=== PATIENT | female | born 1955 | race Caucasian/White ===

== ENCOUNTER 2020-07-08 17:40 | Inpatient (IN) | payer OTHER, MEDICARE ==
[~2020-07-08] VITALS: Ht 162.6 cm; Wt 75.0 kg
--- NOTE | 2020-07-08 18:39 | PHYS DOC ---
General Adult EDM: Chief Complaint: FEVER HPI: HPI: Patient is a 64 year oldhzk-haxs-xfk female past medical history diabetes presents with a chief complaint of fever diffuse muscle aches and nausea. Patient states symptoms been ongoing since Wednesday. Patient states Wednesday morning she had a temperature up to 105. Patient states since onset fevers been up and down when treated with Tylenol. Patient states she has diffuse muscle aches. Patient also complains of nausea. Patient has ileostomy in place and states whenever she is very dehydrated she has nausea. Patient states she feels she is dehydrated. Patient also states she has a mild cough but denies any sputum production she denies any chest pain shortness of breath or abdominal pain. 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 Patient states she is checked weekly for COVID. Patient states last cover test was on . Review of Systems: Review of Systems: Constitutional: Positive fever [] Eyes: Denies change in visual acuity. [] HENT: Denies nasal congestion or sore throat. [] Respiratory: Denies shortness of breath. [Positive cough] Cardiovascular: Denies chest pain or edema. [] GI: Denies abdominal pain,, vomiting, bloody stools or diarrhea. [Positive nausea] : Denies dysuria. [] Musculoskeletal: Denies back pain or joint pain. [Positive myalgias] Integument: Denies rash. [] Neurologic: Denies headache, focal weakness or sensory changes. [] Endocrine: Denies polyuria or polydipsia. [] Lymphatic: Denies swollen glands. [] Psychiatric: Denies depression or anxiety. [] Heart Score: Risk Factors: Risk Factors: DM, Current or recent (<one month) smoker, HTN, HLP, family history of CAD, obesity. Risk Scores: Score 0 - 3: 2.5% MACE over next 6 weeks - Discharge Home Score 4 - 6: 20.3% MACE over next 6 weeks - Admit for Clinical Observation Score 7 - 10: 72.7% MACE over next 6 weeks - Early Invasive Strategies Physical Exam: PE: Constitutional: Well developed, well nourished, no acute distress, non-toxic appearance. [] HENT: Normocephalic, atraumatic, nose normal. [] Eyes: EOMI, conjunctiva normal, no discharge. [] Neck: Normal range of motion, no stridor. [] Cardiovascular:Heart rate regular rhythm, no murmur [] Lungs & Thorax: Bilateral breath sounds clear to auscultation [] Abdomen: no tenderness, Skin: Warm, dry, no erythema, no rash. [] Back: Normal range of motion Extremities: ROM intact, Neurologic: Alert and oriented X 3, normal motor function, normal sensory function, no focal deficits noted. [] Psychologic: Affect normal, judgement normal, mood normal. [] EKG: EKG: [] Radiology/Procedures: Radiology/Procedures: [] Impression: The cardiomediastinal silhouette is within normal limits. There is consolidation in the lateral mid lung suspicious for pulmonary infiltrate. There are no significant pleural effusions. There is no pulmonary vascular congestion. No pneumothorax. No suspicious osseous abnormality. IMPRESSION: Consolidation in the lateral left midlung may represent pneumonia in the appropriate clinical setting. Recommend follow-up to resolution to exclude underlying neoplastic process. Course & Med Decision Making: Course & Med Decision Making Pertinent Labs and Imaging studies reviewed. (See chart for details) []Xray with concern for pneumonia Treatment included IV fluids tylenol, rocephin and zithromax. Patient had an episode of emesis ---- treated with Zofran. Patient admitted to the hospitalist for further evaluation and treatment. Barry Disclaimer: Barry Disclaimer: This electronic medical record was generated, in whole or in part, using a voice recognition dictation system. Departure Departure Impression: Primary Impression: Fever Additional Impressions: Viral syndrome Person under investigation for COVID-19 Pneumonia Admitting Physician: MARY Condition: STABLE Additional Instructions: You have been tested for or diagnosed with COVID-19. It is an infection caused by a new type of coronavirus. COVID-19 will cause cold-like or mild flu symptoms in most. It can cause more severe symptoms like problems breathing in some. There is no treatment for COVID-19. The body will clear the infection over time. Self-care will help to ease discomfort. Steps to Take: Self-Care Rest as needed. Healthy habits may help you feel better. Steps include: Choose healthy foods including fruits and vegetables. Drink water throughout the day. Get plenty of sleep each night. If you smoke, try to quit. It may ease breathing. Avoid alcohol. Keep Others Healthy The virus can spread to others. Droplets are released every time you sneeze or cough. The droplets can get into the mouth, nose, or eyes of people near you and lead to infection. To lower the chances of spreading COVID-19 to others: Stay at home until your doctor has said it is safe to leave. If you tested positive this will mean staying isolated until both of the following are true: At least 7 days have passed since the start of illness. You are free of fever for at least 72 hours without the use of medicine. During this time: - Avoid public areas, events, or transportation. Do not return to work or school until your doctor has said it is safe to do so. - Call ahead if you need to go to a medical center. Let them know you may have COVID-19. It will help them guide you where to go. They may also ask you to wear a facemask when you come to the office. - If you call for emergency medical services, let them know you may have COVID- 19. While at home: - Try to avoid close contact with others. Stay about 6 feet away. - If possible, spend most of your time in a separate room from others. - Use a face mask if you will be in close contact with others such as sharing a room or vehicle. - Have someone wipe down common surfaces in the home. Use household electromechanisms design drafter every day on areas like doorknobs, counters, or sinks. - Cough or sneeze into a tissue. Throw the tissue away right after use. If a tissue is not available, cough or sneeze into your elbow. - Wash your hands often. Wash them after sneezing or coughing. Use soap and w ater and wash for at least 20 seconds. Alcohol based hand lamp cleaner street light can be used if soap and water is not available. - Do not prepare food for others. Avoid sharing personal items like forks, spoons, or toothbrushes. - Avoid close contact with pets while you are sick. There is no evidence of the virus passing to pets. This is a safety step until more is known about this virus. Isolation can be frustrating. Social interaction can help. Keep in touch with friends and family through phone and tech options. You can still interact with others in your home, just keep a safe distance of about 6 feet. Follow-up: Your doctors office will check in with you to see if there are any changes in your health. You may be asked to keep track of symptoms to share with them. They will also let you know when you are clear to be in public again. Problems to Look Out For: Contact your doctor if your recovery is not going as you expect. Get emergency care if you have problems such as: - Trouble breathing - Nonstop chest pain or pressure - Changes in awareness, confusion, or problems waking - Lips or face have bluish color - Worsening of symptoms If you think you have an emergency, call for emergency medical services right away. As taken from [facility] Justicifation of Admission Dx: Justifications for Admission: Justification of Admission Dx: Yes Comminuty Aquired Pneumonia: Dehydration CATIE VILLELA I DO Jul 08, 2020 18:39
[2020-07-08] MEDS ORDERED: IV NORMAL SALINE 1000ML BAG 1,000 ML IV ONE (18:45)
[2020-07-08] MEDS ORDERED: ACETAMINOPHEN 325 MG TABLET. PO ONE (18:45)
[2020-07-08 19:05] LABS: BASO % 0 % (0-3); EOS % 0 % (0-3); HEMATOCRIT 40.8 % (36.0-47.0); HEMOGLOBIN 13.6 g/dL (12.0-15.5); LYMPH # 0.6 x10^3/uL (1.0-4.8); LYMPH % 5 % (24-48); MEAN CORPUSCULAR HEMOGLOBIN 29 pg (25-35); MEAN CORPUSCULAR HGB CONC 33 g/dL (31-37); MEAN CORPUSCULAR VOLUME 87 fL (79-100); MONO % 8 % (0-9); NEUT # 11.1 x10^3/uL (1.8-7.7); NEUT % 87 % (31-73); PLATELET COUNT 211 x10^3/uL (140-400); RED BLOOD COUNT 4.67 x10^6/uL (3.50-5.40); RED CELL DISTRIBUTION WIDTH 13.5 % (11.5-14.5); WHITE BLOOD COUNT 12.7 x10^3/uL (4.0-11.0)
[2020-07-08 19:17] LABS: CALCIUM 9.2 mg/dL (8.5-10.1); CREATININE 1.4 mg/dL (0.6-1.0); GFR 37.6; POTASSIUM 3.4 mmol/L (3.5-5.1)
[2020-07-08 19:23] LABS: ALBUMIN 2.9 g/dL (3.4-5.0); ALBUMIN/GLOBULIN RATIO 0.6 (1.0-1.7); TOTAL BILIRUBIN 0.6 mg/dL (0.2-1.0); TOTAL PROTEIN 7.4 g/dL (6.4-8.2)
[2020-07-08 19:29] LABS: % BANDS 4 % (0-9); % LYMPHS 5 % (24-48); % MONOS 5 % (0-10); % SEGS 86 % (35-66); PLT ESTIMATE ADEQUATE (ADEQUATE); TOXIC GRANULATION SLIGHT
--- NOTE | 2020-07-08 19:29 | RAD ---
CHEST AP ONLY 07/08/2020 6:32 PM INDICATION: Cough, fever COMPARISON: None available TECHNIQUE: Portable frontal view of the chest is provided. FINDINGS: The cardiomediastinal silhouette is within normal limits. There is consolidation in the lateral mid lung suspicious for pulmonary infiltrate. There are no significant pleural effusions. There is no pulmonary vascular congestion. No pneumothorax. No suspicious osseous abnormality. IMPRESSION: Consolidation in the lateral left midlung may represent pneumonia in the appropriate clinical setting. Recommend follow-up to resolution to exclude underlying neoplastic process. Electronically signed by: Kady Christianson MD (07/08/2020 7:26 PM) CARMELINA
[2020-07-08] MEDS ORDERED: ONDANSETRON PF 4 MG/2 ML VIAL. ONE (19:52)
[2020-07-08] MEDS ORDERED: ONDANSETRON PF 4 MG/2 ML VIAL. IVP ONE (20:00)
[2020-07-08] MEDS ORDERED: cefTRIAXone IV Push 1 GM VIAL. IVP ONE (20:15)
[2020-07-08] MEDS ORDERED: AZITHROMYCIN 250 MG TABLET. PO ONE (20:15)
[2020-07-08] MEDS ORDERED: MORPHINE SULFATE 2 MG/ML VIAL. IV PRN (20:45)
[2020-07-08] MEDS ORDERED: ONDANSETRON PF 4 MG/2 ML VIAL. IV PRN (20:45)
[2020-07-08] MEDS ORDERED: DEXTROSE 50% 25 GM / 50ML DISP.SYRIN. IV PRN ×2 (21:00→21:30)
[2020-07-08] MEDS ORDERED: MAGNESIUM OXIDE 400 MG TABLET PO PRN (21:00)
[2020-07-08] MEDS ORDERED: POTASSIUM CHLORIDE 10MEQ 100 ML IV PRN ×2 (21:00)
[2020-07-08] MEDS ORDERED: ONDANSETRON PF 4 MG/2 ML VIAL. IVP PRN (21:00)
[2020-07-08] MEDS ORDERED: POTASSIUM CHLORIDE 20 MEQ TABLET.ER. PO PRN (21:00)
[2020-07-08] MEDS: MAGNESIUM SULFATE 2GM 50 ML IV SCH (21:00)
[2020-07-08] MEDS ORDERED: SENNOSIDES 8.6 MG TABLET PO PRN (21:00)
[2020-07-08] MEDS ORDERED: DOCUSATE SODIUM 100 MG CAPSULE. PO PRN (21:00)
[2020-07-08] MEDS ORDERED: PIOG15TA42 PO (21:26)
[2020-07-08] MEDS ORDERED: GLYB5TAB3 PO (21:26)
[2020-07-08] MEDS ORDERED: SITA50TA PO (21:26)
[2020-07-08] MEDS: POTASSIUM CHLORIDE 10MEQ 100 ML IV SCH ×3 (22:00→23:00)
[2020-07-08] MEDS ORDERED: ACETAMINOPHEN 325 MG TABLET. PO PRN (23:00)
[2020-07-09] VITALS (7 sets, daily range): BP systolic 95–137; BP diastolic 35–61
[2020-07-09] MEDS: POTASSIUM CHLORIDE 10MEQ 100 ML IV SCH (00:01)
[2020-07-09 04:54] LABS: BASO % 0 % (0-3); EOS % 0 % (0-3); HEMOGLOBIN 12.3 g/dL (12.0-15.5); LYMPH # 0.6 x10^3/uL (1.0-4.8); LYMPH % 5 % (24-48); MEAN CORPUSCULAR HEMOGLOBIN 29 pg (25-35); MEAN CORPUSCULAR HGB CONC 33 g/dL (31-37); MEAN CORPUSCULAR VOLUME 88 fL (79-100); MONO # 0.8 x10^3/uL (0.0-1.1); MONO % 7 % (0-9); NEUT # 10.7 x10^3/uL (1.8-7.7); NEUT % 88 % (31-73); PLATELET COUNT 188 x10^3/uL (140-400); RED BLOOD COUNT 4.21 x10^6/uL (3.50-5.40); RED CELL DISTRIBUTION WIDTH 13.4 % (11.5-14.5); WHITE BLOOD COUNT 12.1 x10^3/uL (4.0-11.0)
[2020-07-09 05:11] LABS: CALCIUM 8.4 mg/dL (8.5-10.1); CREATININE 1.4 mg/dL (0.6-1.0); GFR 37.6; MAGNESIUM 1.9 mg/dL (1.8-2.4); PHOSPHORUS 3.5 mg/dL (2.6-4.7); POTASSIUM 3.3 mmol/L (3.5-5.1)
[2020-07-09] MEDS: IV NORMAL SALINE 1000ML BAG 1,000 ML IV SCH ×5 (05:59→20:55)
[2020-07-09 06:14] LABS: BILIRUBIN,URINE NEGATIVE (NEG); CLARITY,URINE CLEAR; COLOR,URINE YELLOW; NITRITE,URINE NEGATIVE (NEG); PH,URINE 5.5 (<5.0-8.0); PROTEIN,URINE 100 mg/dL (NEG-TRACE); UROBILINOGEN,URINE 0.2 mg/dL (0.2 mg/dL)
[2020-07-09 07:04] LABS: BACTERIA,URINE 0 /HPF (0-FEW); RBC,URINE OCC /HPF (0-2)
[2020-07-09 07:05] LABS: AMORPHOUS SEDIMENT,UR PRESENT /HPF; SQUAMOUS EPITHELIAL CELL,UR MOD /LPF
[2020-07-09] MEDS ORDERED: IPRATRPIUM/ALBUTEROL 0.5/2.5MG 3 ML NEBU. NEB SCH (08:00)
[2020-07-09] MEDS: INSULIN LISPRO 300 UNITS/3 ML VIAL. SQ SCH ×3 (08:00→17:00)
--- NOTE | 2020-07-09 08:36 | PDOC1 ---
History and Physical Date of Admission Date of Admission DATE: 07/09/20 TIME: 08:34 Identification/Chief Complaint Chief Complaint seen in er with fever 64 year oldbdg-eeqo-ldh female past medical history diabetes presents with a chief complaint of fever diffuse muscle aches and nausea. Patient states symptoms been ongoing since Wednesday. Patient states Wednesday morning she had a temperature up to 105. Patient states since onset fevers been up and down when treated with Tylenol. Patient states she has diffuse muscle aches. Patient also complains of nausea. Patient has ileostomy in place and states whenever she is very dehydrated she has nausea. Patient states she feels she is dehydrated. Patient also states she has a mild cough but denies any sputum production she denies any chest pain shortness of breath or abdominal pain. 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 Patient states she is checked weekly for COVID. Past Medical History Musculoskeletal: Osteoarthritis Endocrine: Diabetes Family History Family History: High Cholestrol Social History Smoke: No ALCOHOL: none Drugs: None Current Problem List Problem List Problems Medical Problems: (1) Fever Status: Acute (2) Person under investigation for COVID-19 Status: Acute (3) Pneumonia Status: Acute (4) Viral syndrome Status: Acute Current Medications Current Medications Current Medications Acetaminophen (Tylenol) 650 mg 1X ONCE PO Last administered on 07/08/20at 18:46; Start 07/08/20 at 18:45; Stop 07/08/20 at 18:50; Status DC Sodium Chloride 1,000 ml @ 1,000 mls/hr 1X ONCE IV Last administered on 07/08/20at 18:53; Start 07/08/20 at 18:45; Stop 07/08/20 at 19:44; Status DC Ceftriaxone Sodium (Rocephin) 1 gm 1X ONCE IVP Last administered on 07/08/20 19:52; Start 07/08/20 at 20:15; Stop 07/08/20 at 20:16; Status DC Azithromycin (Zithromax) 500 mg 1X ONCE PO Last administered on 07/08/20at 19:51; Start 07/08/20 at 20:15; Stop 07/08/20 at 20:16; Status DC Ondansetron HCl (Zofran) 4 mg 1X ONCE IVP Last administered on 07/08/20at 19:57; Start 07/08/20 at 20:00; Stop 07/08/20 at 20:01; Status DC Ondansetron HCl (Zofran) 4 mg STK-MED ONCE .ROUTE ; Start 07/08/20 at 19:52; Stop 07/08/20 at 19:52; Status DC Ondansetron HCl (Zofran) 4 mg PRN Q8HRS PRN IV NAUSEA/VOMITING; Start 07/08/20 a t 20:45; Stop 07/09/20 at 20:44 Morphine Sulfate (Morphine Sulfate) 2 mg PRN Q2HR PRN IV PAIN; Start 07/08/20 at 20:45; Stop 07/09/20 at 20:44 Sennosides (Senna) 17.2 mg PRN BID PRN PO CONSTIPATION; Start 07/08/20 at 21:00 Docusate Sodium (Colace) 100 mg PRN DAILY PRN PO HARD STOOLS; Start 07/08/20 at 21:00 Ondansetron HCl (Zofran) 4 mg PRN Q6HRS PRN IVP NAUSEA/VOMITING; Start 07/08/20 at 21:00 Albuterol/ Ipratropium (Duoneb) 3 ml RTQID NEB ; Start 07/09/20 at 08:00 Potassium Chloride (Klor-Con) 40 meq 1X PRN PO PER PROTOCOL; Start 07/08/20 at 21:00 Magnesium Oxide (Magnesium Oxide) 400 mg PRN BID PRN PO SEE MAGNESIUM PARAMETER; Start 07/08/20 at 21:00; Stop 07/08/20 at 21:18; Status DC Potassium Chloride/Water 100 ml @ 100 mls/hr PRN Q1HR PRN IV SEE PARAMETER; Start 07/08/20 at 21:00 Magnesium Sulfate 50 ml @ 25 mls/hr Q24H IV ; Start 07/08/20 at 21:00; Stop 07/10/20 at 22:59 Potassium Chloride/Water 100 ml @ 100 mls/hr PRN Q1HR PRN IV low k; Start 07/08/20 at 21:00 Aspirin (Ecotrin) 81 mg DAILYWBKFT PO ; Start 07/09/20 at 08:00 Dextrose (Dextrose 50%-Water Syringe) 12.5 gm PRN Q15MIN PRN IV SEE COMMENTS; Start 07/08/20 at 21:00 Potassium Chloride/Water 100 ml @ 100 mls/hr Q1HR IV Last administered on 07/08/20at 22:03; Start 07/08/20 at 21:00; Stop 07/09/20 at 00:59; Status DC Magnesium Oxide (Magnesium Oxide) 400 mg BID PO ; Start 07/09/20 at 09:00; Stop 07/10/20 at 21:01 Heparin Sodium (Porcine) (Heparin Sodium) 5,000 unit Q12HR SQ ; Start 07/09/20 at 09:00 Insulin Human Lispro (HumaLOG) 0-5 UNITS TIDWMEALS SQ ; Start 07/09/20 at 08:00 Dextrose (Dextrose 50%-Water Syringe) 12.5 gm PRN Q15MIN PRN IV SEE COMMENTS; Start 07/08/20 at 21:30; Status UNV Acetaminophen (Tylenol) 650 mg PRN Q6HRS PRN PO FEVER > 100.5'F Last administered on 07/09/20at 01:52; Start 07/08/20 at 23:00 Sodium Chloride 1,000 ml @ 100 mls/hr Q10H IV Last administered on 07/09/20at 05:59; Start 07/09/20 at 05:45 Ceftriaxone Sodium (Rocephin) 1 gm Q24H IVP ; Start 07/09/20 at 21:00 Azithromycin 500 mg/Sodium Chloride 250 ml @ 250 mls/hr Q24H IV ; Start 07/09/20 at 21:00 Active Scripts Active Reported Januvia (Sitagliptin Phosphate) 50 Mg Tablet 1 Tab PO DAILY Actos (Pioglitazone Hcl) 15 Mg Tablet 10 Mg PO DAILY Glyburide 5 Mg Tablet 10 Mg PO DAILY Allergies Allergies: Coded Allergies: prochlorperazine (Verified Adverse Reaction, Severe, lock jaw, 07/08/20) ROS Review of System Constitutional: Positive fever [] Eyes: Denies change in visual acuity. [] HENT: Denies nasal congestion or sore throat. [] Respiratory: Denies shortness of breath. [Positive cough] Cardiovascular: Denies chest pain or edema. [] GI: Denies abdominal pain,, vomiting, bloody stools or diarrhea. [Positive nausea] : Denies dysuria. [] Musculoskeletal: Denies back pain or joint pain. [Positive myalgias] Integument: Denies rash. [] Neurologic: Denies headache, focal weakness or sensory changes. [] Endocrine: Denies polyuria or polydipsia. [] Lymphatic: Denies swollen glands. [] Psychiatric: Denies depression or anxiety. [] 14 PT ROS OTHERWISE NEG General: YES: Fatigue Hematological and Lymphatic: No: Bleeding Problems, Blood Clots, Blood Transfusions, Brusing, Night Sweats, Pallor, Swollen Lymph Nodes, Other Respiratory: YES: Cough Physical Exam Physical Exam Constitutional: Well developed, well nourished, no acute distress, non-toxic appearance. [] HENT: Normocephalic, atraumatic, nose normal. [] Eyes: EOMI, conjunctiva normal, no discharge. [] Neck: Normal range of motion, no stridor. [] Cardiovascular:Heart rate regular rhythm, no murmur [] Lungs & Thorax: Bilateral breath sounds clear to auscultation [] Abdomen: no tenderness, Skin: Warm, dry, no erythema, no rash. [] Back: Normal range of motion Extremities: ROM intact, Neurologic: Alert and oriented X 3, normal motor function, normal sensory function, no focal deficits noted. [] Psychologic: Affect normal, judgement normal, mood normal. [] General: Alert, Oriented X3, Cooperative, No acute distress Extremities: No cyanosis Neuro: Normal speech, Cranial nerves 3-12 NL Psych/Mental Status: Mental status NL, Mood NL Vitals Vitals Vital Signs Date Time Temp Pulse Resp B/P (MAP) Pulse Ox O2 Delivery O2 Flow Rate FiO2 07/09/20 07:49 99.6 80 20 95/35 (55) 96 Nasal Cannula 2.0 99.6 Labs Labs Laboratory Tests Test 07/08/20 18:47 07/08/20 23:20 07/09/20 00:52 07/09/20 03:52 White Blood Count 12.7 x10^3/uL (4.0-11.0) 12.1 x10^3/uL (4.0-11.0) Red Blood Count 4.67 x10^6/uL (3.50-5.40) 4.21 x10^6/uL (3.50-5.40) Hemoglobin 13.6 g/dL (12.0-15.5) 12.3 g/dL (12.0-15.5) Hematocrit 40.8 % (36.0-47.0) 37.0 % (36.0-47.0) Mean Corpuscular Volume 87 fL (79-100) 88 fL (79-100) Mean Corpuscular Hemoglobin 29 pg (25-35) 29 pg (25-35) Mean Corpuscular Hemoglobin Concent 33 g/dL (31-37) 33 g/dL (31-37) Red Cell Distribution Width 13.5 % (11.5-14.5) 13.4 % (11.5-14.5) Platelet Count 211 x10^3/uL (140-400) 188 x10^3/uL (140-400) Neutrophils (%) (Auto) 87 % (31-73) 88 % (31-73) Lymphocytes (%) (Auto) 5 % (24-48) 5 % (24-48) Monocytes (%) (Auto) 8 % (0-9) 7 % (0-9) Eosinophils (%) (Auto) 0 % (0-3) 0 % (0-3) Basophils (%) (Auto) 0 % (0-3) 0 % (0-3) Neutrophils # (Auto) 11.1 x10^3/uL (1.8-7.7) 10.7 x10^3/uL (1.8-7.7) Lymphocytes # (Auto) 0.6 x10^3/uL (1.0-4.8) 0.6 x10^3/uL (1.0-4.8) Monocytes # (Auto) 1.0 x10^3/uL (0.0-1.1) 0.8 x10^3/uL (0.0-1.1) Eosinophils # (Auto) 0.0 x10^3/uL (0.0-0.7) 0.0 x10^3/uL (0.0-0.7) Basophils # (Auto) 0.0 x10^3/uL (0.0-0.2) 0.0 x10^3/uL (0.0-0.2) Segmented Neutrophils % 86 % (35-66) Band Neutrophils % 4 % (0-9) Lymphocytes % 5 % (24-48) Monocytes % 5 % (0-10) Toxic Granulation Slight Platelet Estimate Adequate (ADEQUATE) Sodium Level 135 mmol/L (136-145) 137 mmol/L (136-145) Potassium Level 3.4 mmol/L (3.5-5.1) 3.3 mmol/L (3.5-5.1) Chloride Level 98 mmol/L (98-107) 101 mmol/L (98-107) Carbon Dioxide Level 28 mmol/L (21-32) 23 mmol/L (21-32) Anion Gap 9 (6-14) 13 (6-14) Blood Urea Nitrogen 14 mg/dL (7-20) 14 mg/dL (7-20) Creatinine 1.4 mg/dL (0.6-1.0) 1.4 mg/dL (0.6-1.0) Estimated GFR (Cockcroft-Gault) 37.6 37.6 BUN/Creatinine Ratio 10 (6-20) Glucose Level 73 mg/dL (70-99) 82 mg/dL (70-99) Lactic Acid Level 1.1 mmol/L (0.4-2.0) Calcium Level 9.2 mg/dL (8.5-10.1) 8.4 mg/dL (8.5-10.1) Magnesium Level 2.1 mg/dL (1.8-2.4) 1.9 mg/dL (1.8-2.4) Total Bilirubin 0.6 mg/dL (0.2-1.0) Aspartate Amino Transf (AST/SGOT) 14 U/L (15-37) Alanine Aminotransferase (ALT/SGPT) 21 U/L (14-59) Alkaline Phosphatase 61 U/L (46-116) Troponin I Quantitative < 0.017 ng/mL (0.000-0.055) < 0.017 ng/mL (0.000-0.055) Total Protein 7.4 g/dL (6.4-8.2) Albumin 2.9 g/dL (3.4-5.0) Albumin/Globulin Ratio 0.6 (1.0-1.7) Glucose (Fingerstick) 95 mg/dL (70-99) Phosphorus Level 3.5 mg/dL (2.6-4.7) Test 07/09/20 05:45 07/09/20 08:07 Urine Collection Type Unknown Urine Color Yellow Urine Clarity Clear Urine pH 5.5 (<5.0-8.0) Urine Specific [place] 1.020 (1.000-1.030) Urine Protein 100 mg/dL (NEG-TRACE) Urine Glucose (UA) Negative mg/dL (NEG) Urine Ketones (Stick) 40 mg/dL (NEG) Urine Blood Trace (NEG) Urine Nitrite Negative (NEG) Urine Bilirubin Negative (NEG) Urine Urobilinogen Dipstick 0.2 mg/dL (0.2 mg/dL) Urine Leukocyte Esterase Negative (NEG) Urine RBC Occ /HPF (0-2) Urine WBC 1-4 /HPF (0-4) Urine Squamous Epithelial Cells Mod /LPF Urine Amorphous Sediment Present /HPF Urine Bacteria 0 /HPF (0-FEW) Urine Mucus Slight /LPF Glucose (Fingerstick) 112 mg/dL (70-99) Laboratory Tests Test 07/08/20 18:47 07/08/20 23:20 07/09/20 00:52 07/09/20 03:52 White Blood Count 12.7 x10^3/uL (4.0-11.0) 12.1 x10^3/uL (4.0-11.0) Red Blood Count 4.67 x10^6/uL (3.50-5.40) 4.21 x10^6/uL (3.50-5.40) Hemoglobin 13.6 g/dL (12.0-15.5) 12.3 g/dL (12.0-15.5) Hematocrit 40.8 % (36.0-47.0) 37.0 % (36.0-47.0) Mean Corpuscular Volume 87 fL (79-100) 88 fL (79-100) Mean Corpuscular Hemoglobin 29 pg (25-35) 29 pg (25-35) Mean Corpuscular Hemoglobin Concent 33 g/dL (31-37) 33 g/dL (31-37) Red Cell Distribution Width 13.5 % (11.5-14.5) 13.4 % (11.5-14.5) Platelet Count 211 x10^3/uL (140-400) 188 x10^3/uL (140-400) Neutrophils (%) (Auto) 87 % (31-73) 88 % (31-73) Lymphocytes (%) (Auto) 5 % (24-48) 5 % (24-48) Monocytes (%) (Auto) 8 % (0-9) 7 % (0-9) Eosinophils (%) (Auto) 0 % (0-3) 0 % (0-3) Basophils (%) (Auto) 0 % (0-3) 0 % (0-3) Neutrophils # (Auto) 11.1 x10^3/uL (1.8-7.7) 10.7 x10^3/uL (1.8-7.7) Lymphocytes # (Auto) 0.6 x10^3/uL (1.0-4.8) 0.6 x10^3/uL (1.0-4.8) Monocytes # (Auto) 1.0 x10^3/uL (0.0-1.1) 0.8 x10^3/uL (0.0-1.1) Eosinophils # (Auto) 0.0 x10^3/uL (0.0-0.7) 0.0 x10^3/uL (0.0-0.7) Basophils # (Auto) 0.0 x10^3/uL (0.0-0.2) 0.0 x10^3/uL (0.0-0.2) Segmented Neutrophils % 86 % (35-66) Band Neutrophils % 4 % (0-9) Lymphocytes % 5 % (24-48) Monocytes % 5 % (0-10) Toxic Granulation Slight Platelet Estimate Adequate (ADEQUATE) Sodium Level 135 mmol/L (136-145) 137 mmol/L (136-145) Potassium Level 3.4 mmol/L (3.5-5.1) 3.3 mmol/L (3.5-5.1) Chloride Level 98 mmol/L (98-107) 101 mmol/L (98-107) Carbon Dioxide Level 28 mmol/L (21-32) 23 mmol/L (21-32) Anion Gap 9 (6-14) 13 (6-14) Blood Urea Nitrogen 14 mg/dL (7-20) 14 mg/dL (7-20) Creatinine 1.4 mg/dL (0.6-1.0) 1.4 mg/dL (0.6-1.0) Estimated GFR (Cockcroft-Gault) 37.6 37.6 BUN/Creatinine Ratio 10 (6-20) Glucose Level 73 mg/dL (70-99) 82 mg/dL (70-99) Lactic Acid Level 1.1 mmol/L (0.4-2.0) Calcium Level 9.2 mg/dL (8.5-10.1) 8.4 mg/dL (8.5-10.1) Magnesium Level 2.1 mg/dL (1.8-2.4) 1.9 mg/dL (1.8-2.4) Total Bilirubin 0.6 mg/dL (0.2-1.0) Aspartate Amino Transf (AST/SGOT) 14 U/L (15-37) Alanine Aminotransferase (ALT/SGPT) 21 U/L (14-59) Alkaline Phosphatase 61 U/L (46-116) Troponin I Quantitative < 0.017 ng/mL (0.000-0.055) < 0.017 ng/mL (0.000-0.055) Total Protein 7.4 g/dL (6.4-8.2) Albumin 2.9 g/dL (3.4-5.0) Albumin/Globulin Ratio 0.6 (1.0-1.7) Glucose (Fingerstick) 95 mg/dL (70-99) Phosphorus Level 3.5 mg/dL (2.6-4.7) Test 07/09/20 05:45 07/09/20 08:07 Urine Collection Type Unknown Urine Color Yellow Urine Clarity Clear Urine pH 5.5 (<5.0-8.0) Urine Specific [place] 1.020 (1.000-1.030) Urine Protein 100 mg/dL (NEG-TRACE) Urine Glucose (UA) Negative mg/dL (NEG) Urine Ketones (Stick) 40 mg/dL (NEG) Urine Blood Trace (NEG) Urine Nitrite Negative (NEG) Urine Bilirubin Negative (NEG) Urine Urobilinogen Dipstick 0.2 mg/dL (0.2 mg/dL) Urine Leukocyte Esterase Negative (NEG) Urine RBC Occ /HPF (0-2) Urine WBC 1-4 /HPF (0-4) Urine Squamous Epithelial Cells Mod /LPF Urine Amorphous Sediment Present /HPF Urine Bacteria 0 /HPF (0-FEW) Urine Mucus Slight /LPF Glucose (Fingerstick) 112 mg/dL (70-99) Images Images CHEST AP ONLY 07/08/2020 6:32 PM INDICATION: Cough, fever COMPARISON: None available TECHNIQUE: Portable frontal view of the chest is provided. FINDINGS: The cardiomediastinal silhouette is within normal limits. There is consolidation in the lateral mid lung suspicious for pulmonary infiltrate. There are no significant pleural effusions. There is no pulmonary vascular congestion. No pneumothorax. No suspicious osseous abnormality. IMPRESSION: Consolidation in the lateral left midlung may represent pneumonia in the appropriate clinical setting. Recommend follow-up to resolution to exclude underlying neoplastic process. Electronically signed by: Katy Christianson MD (07/08/2020 7:26 PM) [facility] DICTATED and SIGNED BY: KATY CHRISTIANSON MD DATE: 07/08/201925 VTE Prophylaxis Ordered VTE Prophylaxis Devices: Yes VTE Pharmacological Prophylaxi: Yes Assessment/Plan Assessment/Plan IMPRESSION: Consolidation in the lateral left midlung may represent pneumonia follow-up to resolution to exclude underlying neoplastic process., poss gram neg, gram pos LEUKOCYTOSIS HYPOKALEMIA sepsis FEVER pui for COVID -19 ACUTE HYPOXIC RESP FAILURE tobacco abuse disorder PLAN ADMIT Emperic iv antibiotics, zithromax, rocephin pulm consult r/o covid-19 BLOOD CULTURES FERRITIN CRP smoking cessation provided dvt prophylaxis Justifications for Admission Other Justification ALMAZ KEYES MD Jul 09, 2020 08:36
[2020-07-09] MEDS ORDERED: ONDANSETRON PF 4 MG/2 ML VIAL. IV PRN (08:45)
[2020-07-09] MEDS ORDERED: cloNIDine HCL 0.1 MG TABLET PO PRN (08:45)
[2020-07-09] MEDS ORDERED: DOCUSATE SODIUM 100 MG CAPSULE. PO PRN (08:45)
[2020-07-09] MEDS ORDERED: LORazepam 0.5 MG TABLET PO PRN (08:45)
[2020-07-09] MEDS ORDERED: SODIUM PHOSPHATES 19/7GM 133 ML ENEMA. PR PRN (08:45)
[2020-07-09] MEDS ORDERED: guaiFENesin ORAL 200 MG/10 ML LIQUID. PO PRN (08:45)
[2020-07-09] MEDS ORDERED: 0.9 % SODIUM CHLORIDE 10 ML DISP.SYRIN. IV PRN (08:45)
[2020-07-09] MEDS ORDERED: MAG HYDROX/ALUMINUM HYD/SIMETH 30 ML ORAL.SUSP PO PRN (08:45)
[2020-07-09] MEDS ORDERED: HEPARIN for SUB-Q USE 5,000 UNIT/ML VIAL. SQ SCH (09:00)
[2020-07-09 09:43] LABS: C-REACTIVE PROTEIN 294.8 mg/L (0-3.3)
[2020-07-09] MEDS: ASPIRIN ENTERIC COATED 81 MG TABLET.DR. PO SCH (09:44)
[2020-07-09] MEDS: MAGNESIUM OXIDE 400 MG TABLET PO SCH ×2 (09:44→20:54)
[2020-07-09] MEDS: ENOXAPARIN 40 MG/0.4 ML SYRINGE. SQ SCH ×2 (09:46→20:44)
[2020-07-09] MEDS: IPRATRPIUM/ALBUTEROL 0.5/2.5MG 3 ML NEBU. NEB SCH ×3 (12:00→20:29)
[2020-07-09] MEDS: ACETAMINOPHEN 325 MG TABLET. PO PRN ×2 (13:09→21:41)
--- NOTE | 2020-07-09 14:41 | NUR ---
Aerosol tx not given due to PUI status CHolmesRRT
--- NOTE | 2020-07-09 15:08 | PDOC ---
PULMONARY PROGRESS NOTES DATE: 07/09/20 TIME: 15:07 Vitals Vital Signs Date Time Temp Pulse Resp B/P (MAP) Pulse Ox O2 Delivery O2 Flow Rate FiO2 07/09/20 11:20 101.6 92 19 117/47 (70) 93 Nasal Cannula 2.0 101.6 Labs Laboratory Tests Test 07/08/20 18:47 07/08/20 19:00 07/08/20 23:20 07/09/20 00:52 White Blood Count 12.7 x10^3/uL (4.0-11.0) Red Blood Count 4.67 x10^6/uL (3.50-5.40) Hemoglobin 13.6 g/dL (12.0-15.5) Hematocrit 40.8 % (36.0-47.0) Mean Corpuscular Volume 87 fL (79-100) Mean Corpuscular Hemoglobin 29 pg (25-35) Mean Corpuscular Hemoglobin Concent 33 g/dL (31-37) Red Cell Distribution Width 13.5 % (11.5-14.5) Platelet Count 211 x10^3/uL (140-400) Neutrophils (%) (Auto) 87 % (31-73) Lymphocytes (%) (Auto) 5 % (24-48) Monocytes (%) (Auto) 8 % (0-9) Eosinophils (%) (Auto) 0 % (0-3) Basophils (%) (Auto) 0 % (0-3) Neutrophils # (Auto) 11.1 x10^3/uL (1.8-7.7) Lymphocytes # (Auto) 0.6 x10^3/uL (1.0-4.8) Monocytes # (Auto) 1.0 x10^3/uL (0.0-1.1) Eosinophils # (Auto) 0.0 x10^3/uL (0.0-0.7) Basophils # (Auto) 0.0 x10^3/uL (0.0-0.2) Segmented Neutrophils % 86 % (35-66) Band Neutrophils % 4 % (0-9) Lymphocytes % 5 % (24-48) Monocytes % 5 % (0-10) Toxic Granulation Slight Platelet Estimate Adequate (ADEQUATE) Sodium Level 135 mmol/L (136-145) Potassium Level 3.4 mmol/L (3.5-5.1) Chloride Level 98 mmol/L (98-107) Carbon Dioxide Level 28 mmol/L (21-32) Anion Gap 9 (6-14) Blood Urea Nitrogen 14 mg/dL (7-20) Creatinine 1.4 mg/dL (0.6-1.0) Estimated GFR (Cockcroft-Gault) 37.6 BUN/Creatinine Ratio 10 (6-20) Glucose Level 73 mg/dL (70-99) Lactic Acid Level 1.1 mmol/L (0.4-2.0) Calcium Level 9.2 mg/dL (8.5-10.1) Magnesium Level 2.1 mg/dL (1.8-2.4) Total Bilirubin 0.6 mg/dL (0.2-1.0) Aspartate Amino Transf (AST/SGOT) 14 U/L (15-37) Alanine Aminotransferase (ALT/SGPT) 21 U/L (14-59) Alkaline Phosphatase 61 U/L (46-116) Troponin I Quantitative < 0.017 ng/mL (0.000-0.055) < 0.017 ng/mL (0.000-0.055) Total Protein 7.4 g/dL (6.4-8.2) Albumin 2.9 g/dL (3.4-5.0) Albumin/Globulin Ratio 0.6 (1.0-1.7) Coronavirus (PCR) Not detected (Not Detected) Glucose (Fingerstick) 95 mg/dL (70-99) Test 07/09/20 03:52 07/09/20 05:45 07/09/20 08:07 07/09/20 11:32 White Blood Count 12.1 x10^3/uL (4.0-11.0) Red Blood Count 4.21 x10^6/uL (3.50-5.40) Hemoglobin 12.3 g/dL (12.0-15.5) Hematocrit 37.0 % (36.0-47.0) Mean Corpuscular Volume 88 fL (79-100) Mean Corpuscular Hemoglobin 29 pg (25-35) Mean Corpuscular Hemoglobin Concent 33 g/dL (31-37) Red Cell Distribution Width 13.4 % (11.5-14.5) Platelet Count 188 x10^3/uL (140-400) Neutrophils (%) (Auto) 88 % (31-73) Lymphocytes (%) (Auto) 5 % (24-48) Monocytes (%) (Auto) 7 % (0-9) Eosinophils (%) (Auto) 0 % (0-3) Basophils (%) (Auto) 0 % (0-3) Neutrophils # (Auto) 10.7 x10^3/uL (1.8-7.7) Lymphocytes # (Auto) 0.6 x10^3/uL (1.0-4.8) Monocytes # (Auto) 0.8 x10^3/uL (0.0-1.1) Eosinophils # (Auto) 0.0 x10^3/uL (0.0-0.7) Basophils # (Auto) 0.0 x10^3/uL (0.0-0.2) Sodium Level 137 mmol/L (136-145) Potassium Level 3.3 mmol/L (3.5-5.1) Chloride Level 101 mmol/L (98-107) Carbon Dioxide Level 23 mmol/L (21-32) Anion Gap 13 (6-14) Blood Urea Nitrogen 14 mg/dL (7-20) Creatinine 1.4 mg/dL (0.6-1.0) Estimated GFR (Cockcroft-Gault) 37.6 Glucose Level 82 mg/dL (70-99) Calcium Level 8.4 mg/dL (8.5-10.1) Phosphorus Level 3.5 mg/dL (2.6-4.7) Magnesium Level 1.9 mg/dL (1.8-2.4) Ferritin 442 ng/mL (8-252) C-Reactive Protein, Quantitative 294.8 mg/L (0-3.3) Urine Collection Type Unknown Urine Color Yellow Urine Clarity Clear Urine pH 5.5 (<5.0-8.0) Urine Specific [place] 1.020 (1.000-1.030) Urine Protein 100 mg/dL (NEG-TRACE) Urine Glucose (UA) Negative mg/dL (NEG) Urine Ketones (Stick) 40 mg/dL (NEG) Urine Blood Trace (NEG) Urine Nitrite Negative (NEG) Urine Bilirubin Negative (NEG) Urine Urobilinogen Dipstick 0.2 mg/dL (0.2 mg/dL) Urine Leukocyte Esterase Negative (NEG) Urine RBC Occ /HPF (0-2) Urine WBC 1-4 /HPF (0-4) Urine Squamous Epithelial Cells Mod /LPF Urine Amorphous Sediment Present /HPF Urine Bacteria 0 /HPF (0-FEW) Urine Mucus Slight /LPF Glucose (Fingerstick) 112 mg/dL (70-99) 152 mg/dL (70-99) Laboratory Tests Test 07/08/20 18:47 07/08/20 19:00 07/08/20 23:20 07/09/20 00:52 White Blood Count 12.7 x10^3/uL (4.0-11.0) Red Blood Count 4.67 x10^6/uL (3.50-5.40) Hemoglobin 13.6 g/dL (12.0-15.5) Hematocrit 40.8 % (36.0-47.0) Mean Corpuscular Volume 87 fL (79-100) Mean Corpuscular Hemoglobin 29 pg (25-35) Mean Corpuscular Hemoglobin Concent 33 g/dL (31-37) Red Cell Distribution Width 13.5 % (11.5-14.5) Platelet Count 211 x10^3/uL (140-400) Neutrophils (%) (Auto) 87 % (31-73) Lymphocytes (%) (Auto) 5 % (24-48) Monocytes (%) (Auto) 8 % (0-9) Eosinophils (%) (Auto) 0 % (0-3) Basophils (%) (Auto) 0 % (0-3) Neutrophils # (Auto) 11.1 x10^3/uL (1.8-7.7) Lymphocytes # (Auto) 0.6 x10^3/uL (1.0-4.8) Monocytes # (Auto) 1.0 x10^3/uL (0.0-1.1) Eosinophils # (Auto) 0.0 x10^3/uL (0.0-0.7) Basophils # (Auto) 0.0 x10^3/uL (0.0-0.2) Segmented Neutrophils % 86 % (35-66) Band Neutrophils % 4 % (0-9) Lymphocytes % 5 % (24-48) Monocytes % 5 % (0-10) Toxic Granulation Slight Platelet Estimate Adequate (ADEQUATE) Sodium Level 135 mmol/L (136-145) Potassium Level 3.4 mmol/L (3.5-5.1) Chloride Level 98 mmol/L (98-107) Carbon Dioxide Level 28 mmol/L (21-32) Anion Gap 9 (6-14) Blood Urea Nitrogen 14 mg/dL (7-20) Creatinine 1.4 mg/dL (0.6-1.0) Estimated GFR (Cockcroft-Gault) 37.6 BUN/Creatinine Ratio 10 (6-20) Glucose Level 73 mg/dL (70-99) Lactic Acid Level 1.1 mmol/L (0.4-2.0) Calcium Level 9.2 mg/dL (8.5-10.1) Magnesium Level 2.1 mg/dL (1.8-2.4) Total Bilirubin 0.6 mg/dL (0.2-1.0) Aspartate Amino Transf (AST/SGOT) 14 U/L (15-37) Alanine Aminotransferase (ALT/SGPT) 21 U/L (14-59) Alkaline Phosphatase 61 U/L (46-116) Troponin I Quantitative < 0.017 ng/mL (0.000-0.055) < 0.017 ng/mL (0.000-0.055) Total Protein 7.4 g/dL (6.4-8.2) Albumin 2.9 g/dL (3.4-5.0) Albumin/Globulin Ratio 0.6 (1.0-1.7) Coronavirus (PCR) Not detected (Not Detected) Glucose (Fingerstick) 95 mg/dL (70-99) Test 07/09/20 03:52 07/09/20 05:45 07/09/20 08:07 07/09/20 11:32 White Blood Count 12.1 x10^3/uL (4.0-11.0) Red Blood Count 4.21 x10^6/uL (3.50-5.40) Hemoglobin 12.3 g/dL (12.0-15.5) Hematocrit 37.0 % (36.0-47.0) Mean Corpuscular Volume 88 fL (79-100) Mean Corpuscular Hemoglobin 29 pg (25-35) Mean Corpuscular Hemoglobin Concent 33 g/dL (31-37) Red Cell Distribution Width 13.4 % (11.5-14.5) Platelet Count 188 x10^3/uL (140-400) Neutrophils (%) (Auto) 88 % (31-73) Lymphocytes (%) (Auto) 5 % (24-48) Monocytes (%) (Auto) 7 % (0-9) Eosinophils (%) (Auto) 0 % (0-3) Basophils (%) (Auto) 0 % (0-3) Neutrophils # (Auto) 10.7 x10^3/uL (1.8-7.7) Lymphocytes # (Auto) 0.6 x10^3/uL (1.0-4.8) Monocytes # (Auto) 0.8 x10^3/uL (0.0-1.1) Eosinophils # (Auto) 0.0 x10^3/uL (0.0-0.7) Basophils # (Auto) 0.0 x10^3/uL (0.0-0.2) Sodium Level 137 mmol/L (136-145) Potassium Level 3.3 mmol/L (3.5-5.1) Chloride Level 101 mmol/L (98-107) Carbon Dioxide Level 23 mmol/L (21-32) Anion Gap 13 (6-14) Blood Urea Nitrogen 14 mg/dL (7-20) Creatinine 1.4 mg/dL (0.6-1.0) Estimated GFR (Cockcroft-Gault) 37.6 Glucose Level 82 mg/dL (70-99) Calcium Level 8.4 mg/dL (8.5-10.1) Phosphorus Level 3.5 mg/dL (2.6-4.7) Magnesium Level 1.9 mg/dL (1.8-2.4) Ferritin 442 ng/mL (8-252) C-Reactive Protein, Quantitative 294.8 mg/L (0-3.3) Urine Collection Type Unknown Urine Color Yellow Urine Clarity Clear Urine pH 5.5 (<5.0-8.0) Urine Specific [place] 1.020 (1.000-1.030) Urine Protein 100 mg/dL (NEG-TRACE) Urine Glucose (UA) Negative mg/dL (NEG) Urine Ketones (Stick) 40 mg/dL (NEG) Urine Blood Trace (NEG) Urine Nitrite Negative (NEG) Urine Bilirubin Negative (NEG) Urine Urobilinogen Dipstick 0.2 mg/dL (0.2 mg/dL) Urine Leukocyte Esterase Negative (NEG) Urine RBC Occ /HPF (0-2) Urine WBC 1-4 /HPF (0-4) Urine Squamous Epithelial Cells Mod /LPF Urine Amorphous Sediment Present /HPF Urine Bacteria 0 /HPF (0-FEW) Urine Mucus Slight /LPF Glucose (Fingerstick) 112 mg/dL (70-99) 152 mg/dL (70-99) Medications Active Scripts Medications Dose Route/Sig Max Daily Dose Days Date Category Januvia (Sitagliptin Phosphate) 50 Mg Tablet 1 Tab PO DAILY 07/08/20 Reported Actos (Pioglitazone Hcl) 15 Mg Tablet 10 Mg PO DAILY 07/08/20 Reported Glyburide 5 Mg Tablet 10 Mg PO DAILY 07/08/20 Reported Impression . Full note dictated Patient presented with fever chest x-ray reveals consolidation, will obtain CT chest to rule out other pathology SARS-CoV-2 negative Continue empiric antibiotics Patient instructed on the importance of discontinuing tobacco use LILLIE CRENSHAW MD Jul 09, 2020 15:08
--- NOTE | 2020-07-09 15:28 | CONS ---
DATE OF CONSULTATION: 07/09/2020 ATTENDING PHYSICIAN: Dr. Corona. REASON FOR CONSULTATION: The patient is seen in pulmonary consultation at the request of Dr. Corona for fever, abnormal chest x-ray, possible COVID-19. HISTORY OF PRESENT ILLNESS: The patient is a 64-year-old that has a history of diabetes, tobacco dependent, presented with some diffuse muscle aches and nausea. Wednesday, she also had a fever at home. She presented, was evaluated, had a chest x-ray, which revealed a left-sided consolidation. I was asked to see her in consultation. 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 She had a T-max yesterday of 102.8, today it is 101.6. She reports no hemoptysis. She smokes. No chest pain. No pressure, no pleuritic type of discomfort, no syncope or near syncopal episode. PAST MEDICAL HISTORY: Osteoarthritis, diabetes, and hyperlipidemia. SOCIAL HISTORY: She smokes, works at a residential. ALLERGIES: PROCHLORPERAZINE. CURRENT MEDICATIONS: MAR was reviewed. The patient is on antibiotics and DVT prophylaxis. REVIEW OF SYSTEMS: CONSTITUTIONAL: Fever. No chills. EYES: No change in visual acuity. HENT: No sore throat or dysphagia. PULMONARY: As indicated above. CARDIOVASCULAR: No chest pain. No pressure. GASTROINTESTINAL: Some nausea. No vomiting or diarrhea. GENITOURINARY: No dysuria or frequency. MUSCULOSKELETAL: No localized muscle aches or joint pains. SKIN: No new skin rashes. NEUROLOGIC: No headaches, diplopia or blurred vision. PHYSICAL EXAMINATION: VITAL SIGNS: The patient was in no significant respiratory distress, currently on 2 L of oxygen supplementation, saturation greater than 92%. HEENT: Eyes, the sclerae were nonicteric. NECK: Jugular venous distention could not be assessed secondary to body habitus. CHEST: Full expansion. LUNGS: Adequate flow with no wheezes. CARDIOVASCULAR: Regular rate and rhythm with S1, S2, no S3. ABDOMEN: Soft, nontender, nondistended. EXTREMITIES: No clubbing, cyanosis or edema. NEUROLOGICAL: The patient was awake, alert, following commands. A detailed neuro exam was not performed. LABORATORY DATA: White count was elevated. SARS-CoV-2 was negative. Electrolytes were noted. White count was elevated as I mentioned. UA was positive. RADIOLOGICAL DATA: Chest x-ray as indicated above. IMPRESSION: 1. Fever. 2. Acute hypoxemic respiratory failure. 3. Abnormal x-ray compatible with pneumonia, suspect gram-negative, possibly gram-positive. 4. Tobacco dependent. 5. Possible chronic obstructive pulmonary disease. 6. Diabetes. 7. Osteoarthritis. PLAN: 1. As indicated above, the patient's SARS-CoV-2 was negative, I suspect all of the patient's symptoms are related to pneumonia. Chest x-ray revealed consolidation. 2. We will continue antibiotics. 3. CT chest. 4. Blood culture for continued fever. I do appreciate the privilege in sharing in the patient's care. LILLIE CRENSHAW MD DR: YAZMIN/michael JOB#: [id number] / [id number]
--- NOTE | 2020-07-09 16:38 | NUR ---
GISELE keita. Spoke with RN and reviewed chart. Pt from home. Pt COVID negative on 2l 02. Attempted to speak with pt to see about home 02 but pt not in room. GISELE following. Addendum: 07/10/20 at 1017 by FABY JAQUEZ Pt transferred to . GISELE Vu to follow.
--- NOTE | 2020-07-09 17:30 | RAD ---
PQRS Compliance Statement: One or more of the following individualized dose reduction techniques were utilized for this examination: 1. Automated exposure control 2. Adjustment of the mA and/or kV according to patient size 3. Use of iterative reconstruction technique CT CHEST WO CONTRAST 07/09/2020 4:31 PM Indication: Abnormal chest x-ray finding COMPARISON: None available. TECHNIQUE: Multiple axial CT images of the chest were obtained without intravenous contrast. Coronal and sagittal reformats are provided. FINDINGS: There is airspace consolidation identified in the left upper lobe predominantly involving the superior lingula. Associated groundglass changes along the inferior lingula. There is subsegmental atelectasis versus infiltrate at the left lung base with trace of pleural effusion. Minimal pleural thickening at right base. No nodular consolidative changes are identified. Central airways are clear. Enlarged heterogeneous left thyroid lobe. Right paratracheal lymph node measures 7 mm. No pathologically enlarged mediastinal or axillary lymph nodes. No pathologically enlarged hilar lymph nodes although evaluation is limited by lack of intravenous contrast. Heart size within normal limits. No pericardial effusion. Thoracic aorta is normal in course and caliber. Versus portions of the upper abdomen appear normal. No suspicious osseous abnormality. IMPRESSION: Consolidative change involving the wrist. Lingula with more groundglass changes in the inferior lingula favor pulmonary infiltrate in the appropriate clinical setting. Recommend follow-up to resolution to assess for underlying neoplastic process. No pathologically enlarged thoracic lymph nodes. Trace left pleural effusion with adjacent compressive atelectasis versus infiltrate. Electronically signed by: Kady Christianson MD (07/09/2020 5:27 PM) [id number]
--- NOTE | 2020-07-09 19:32 | NUR ---
Patient transferred to Room 400 via wheelchair. All belongings checked and with patient at time of transfer. Patient orientated to room, call light within reach and no needs voiced at this time.
[2020-07-09] MEDS: AZITHROMYCIN 500 MG in IV NORMAL SALINE 250ML 250 ML IV SCH (20:44)
[2020-07-09] MEDS: LACTOBACILLUS RHAMNOSUS GG 1 CAPSULE. PO SCH (20:44)
[2020-07-09] MEDS: cefTRIAXone IV Push 1 GM VIAL. IVP SCH (20:44)
[2020-07-09] MEDS: MAGNESIUM SULFATE 2GM 50 ML IV SCH (20:54)
[2020-07-10 03:00] VITALS: BP 108/52
[2020-07-10 04:54] LABS: BASO % 0 % (0-3); EOS % 0 % (0-3); HEMOGLOBIN 12.1 g/dL (12.0-15.5); LYMPH # 0.6 x10^3/uL (1.0-4.8); LYMPH % 9 % (24-48); MEAN CORPUSCULAR HEMOGLOBIN 29 pg (25-35); MEAN CORPUSCULAR HGB CONC 33 g/dL (31-37); MEAN CORPUSCULAR VOLUME 88 fL (79-100); MONO # 0.5 x10^3/uL (0.0-1.1); MONO % 7 % (0-9); NEUT # 6.3 x10^3/uL (1.8-7.7); NEUT % 84 % (31-73); PLATELET COUNT 187 x10^3/uL (140-400); RED BLOOD COUNT 4.21 x10^6/uL (3.50-5.40); RED CELL DISTRIBUTION WIDTH 13.5 % (11.5-14.5); WHITE BLOOD COUNT 7.5 x10^3/uL (4.0-11.0)
[2020-07-10 05:16] LABS: ALBUMIN 2.3 g/dL (3.4-5.0); ALBUMIN/GLOBULIN RATIO 0.7 (1.0-1.7); CALCIUM 8.4 mg/dL (8.5-10.1); CREATININE 1.3 mg/dL (0.6-1.0); POTASSIUM 3.9 mmol/L (3.5-5.1); TOTAL BILIRUBIN 0.1 mg/dL (0.2-1.0); TOTAL PROTEIN 5.7 g/dL (6.4-8.2)
[2020-07-10] MEDS: IV NORMAL SALINE 1000ML BAG 1,000 ML IV SCH ×4 (05:55→20:19)
[2020-07-10] MEDS: ACETAMINOPHEN 325 MG TABLET. PO PRN ×3 (05:59→20:22)
[2020-07-10 07:00] VITALS: BP 117/46
[2020-07-10] MEDS: IPRATRPIUM/ALBUTEROL 0.5/2.5MG 3 ML NEBU. NEB SCH ×4 (07:31→19:39)
[2020-07-10] MEDS: INSULIN LISPRO 300 UNITS/3 ML VIAL. SQ SCH ×3 (08:00→17:00)
--- NOTE | 2020-07-10 08:43 | PDOC ---
PULMONARY PROGRESS NOTES DATE: 07/10/20 TIME: 08:43 Subjective No events overnight Vitals Vital Signs Date Time Temp Pulse Resp B/P (MAP) Pulse Ox O2 Delivery O2 Flow Rate FiO2 07/10/20 07:31 90 Room Air 07/10/20 07:00 99.3 67 18 117/46 (69) 99.3 07/09/20 20:00 2.0 Labs Laboratory Tests Test 07/08/20 18:47 07/08/20 19:00 07/08/20 23:20 07/09/20 00:52 White Blood Count 12.7 x10^3/uL (4.0-11.0) Red Blood Count 4.67 x10^6/uL (3.50-5.40) Hemoglobin 13.6 g/dL (12.0-15.5) Hematocrit 40.8 % (36.0-47.0) Mean Corpuscular Volume 87 fL (79-100) Mean Corpuscular Hemoglobin 29 pg (25-35) Mean Corpuscular Hemoglobin Concent 33 g/dL (31-37) Red Cell Distribution Width 13.5 % (11.5-14.5) Platelet Count 211 x10^3/uL (140-400) Neutrophils (%) (Auto) 87 % (31-73) Lymphocytes (%) (Auto) 5 % (24-48) Monocytes (%) (Auto) 8 % (0-9) Eosinophils (%) (Auto) 0 % (0-3) Basophils (%) (Auto) 0 % (0-3) Neutrophils # (Auto) 11.1 x10^3/uL (1.8-7.7) Lymphocytes # (Auto) 0.6 x10^3/uL (1.0-4.8) Monocytes # (Auto) 1.0 x10^3/uL (0.0-1.1) Eosinophils # (Auto) 0.0 x10^3/uL (0.0-0.7) Basophils # (Auto) 0.0 x10^3/uL (0.0-0.2) Segmented Neutrophils % 86 % (35-66) Band Neutrophils % 4 % (0-9) Lymphocytes % 5 % (24-48) Monocytes % 5 % (0-10) Toxic Granulation Slight Platelet Estimate Adequate (ADEQUATE) Sodium Level 135 mmol/L (136-145) Potassium Level 3.4 mmol/L (3.5-5.1) Chloride Level 98 mmol/L (98-107) Carbon Dioxide Level 28 mmol/L (21-32) Anion Gap 9 (6-14) Blood Urea Nitrogen 14 mg/dL (7-20) Creatinine 1.4 mg/dL (0.6-1.0) Estimated GFR (Cockcroft-Gault) 37.6 BUN/Creatinine Ratio 10 (6-20) Glucose Level 73 mg/dL (70-99) Lactic Acid Level 1.1 mmol/L (0.4-2.0) Calcium Level 9.2 mg/dL (8.5-10.1) Magnesium Level 2.1 mg/dL (1.8-2.4) Total Bilirubin 0.6 mg/dL (0.2-1.0) Aspartate Amino Transf (AST/SGOT) 14 U/L (15-37) Alanine Aminotransferase (ALT/SGPT) 21 U/L (14-59) Alkaline Phosphatase 61 U/L (46-116) Troponin I Quantitative < 0.017 ng/mL (0.000-0.055) < 0.017 ng/mL (0.000-0.055) Total Protein 7.4 g/dL (6.4-8.2) Albumin 2.9 g/dL (3.4-5.0) Albumin/Globulin Ratio 0.6 (1.0-1.7) Coronavirus (PCR) Not detected (Not Detected) Glucose (Fingerstick) 95 mg/dL (70-99) Test 07/09/20 03:52 07/09/20 05:45 07/09/20 08:07 07/09/20 11:32 White Blood Count 12.1 x10^3/uL (4.0-11.0) Red Blood Count 4.21 x10^6/uL (3.50-5.40) Hemoglobin 12.3 g/dL (12.0-15.5) Hematocrit 37.0 % (36.0-47.0) Mean Corpuscular Volume 88 fL (79-100) Mean Corpuscular Hemoglobin 29 pg (25-35) Mean Corpuscular Hemoglobin Concent 33 g/dL (31-37) Red Cell Distribution Width 13.4 % (11.5-14.5) Platelet Count 188 x10^3/uL (140-400) Neutrophils (%) (Auto) 88 % (31-73) Lymphocytes (%) (Auto) 5 % (24-48) Monocytes (%) (Auto) 7 % (0-9) Eosinophils (%) (Auto) 0 % (0-3) Basophils (%) (Auto) 0 % (0-3) Neutrophils # (Auto) 10.7 x10^3/uL (1.8-7.7) Lymphocytes # (Auto) 0.6 x10^3/uL (1.0-4.8) Monocytes # (Auto) 0.8 x10^3/uL (0.0-1.1) Eosinophils # (Auto) 0.0 x10^3/uL (0.0-0.7) Basophils # (Auto) 0.0 x10^3/uL (0.0-0.2) Sodium Level 137 mmol/L (136-145) Potassium Level 3.3 mmol/L (3.5-5.1) Chloride Level 101 mmol/L (98-107) Carbon Dioxide Level 23 mmol/L (21-32) Anion Gap 13 (6-14) Blood Urea Nitrogen 14 mg/dL (7-20) Creatinine 1.4 mg/dL (0.6-1.0) Estimated GFR (Cockcroft-Gault) 37.6 Glucose Level 82 mg/dL (70-99) Calcium Level 8.4 mg/dL (8.5-10.1) Phosphorus Level 3.5 mg/dL (2.6-4.7) Magnesium Level 1.9 mg/dL (1.8-2.4) Ferritin 442 ng/mL (8-252) C-Reactive Protein, Quantitative 294.8 mg/L (0-3.3) Urine Collection Type Unknown Urine Color Yellow Urine Clarity Clear Urine pH 5.5 (<5.0-8.0) Urine Specific [place] 1.020 (1.000-1.030) Urine Protein 100 mg/dL (NEG-TRACE) Urine Glucose (UA) Negative mg/dL (NEG) Urine Ketones (Stick) 40 mg/dL (NEG) Urine Blood Trace (NEG) Urine Nitrite Negative (NEG) Urine Bilirubin Negative (NEG) Urine Urobilinogen Dipstick 0.2 mg/dL (0.2 mg/dL) Urine Leukocyte Esterase Negative (NEG) Urine RBC Occ /HPF (0-2) Urine WBC 1-4 /HPF (0-4) Urine Squamous Epithelial Cells Mod /LPF Urine Amorphous Sediment Present /HPF Urine Bacteria 0 /HPF (0-FEW) Urine Mucus Slight /LPF Glucose (Fingerstick) 112 mg/dL (70-99) 152 mg/dL (70-99) Test 07/09/20 17:03 07/09/20 21:37 07/10/20 04:15 07/10/20 07:15 Glucose (Fingerstick) 110 mg/dL (70-99) 152 mg/dL (70-99) 163 mg/dL (70-99) White Blood Count 7.5 x10^3/uL (4.0-11.0) Red Blood Count 4.21 x10^6/uL (3.50-5.40) Hemoglobin 12.1 g/dL (12.0-15.5) Hematocrit 37.0 % (36.0-47.0) Mean Corpuscular Volume 88 fL (79-100) Mean Corpuscular Hemoglobin 29 pg (25-35) Mean Corpuscular Hemoglobin Concent 33 g/dL (31-37) Red Cell Distribution Width 13.5 % (11.5-14.5) Platelet Count 187 x10^3/uL (140-400) Neutrophils (%) (Auto) 84 % (31-73) Lymphocytes (%) (Auto) 9 % (24-48) Monocytes (%) (Auto) 7 % (0-9) Eosinophils (%) (Auto) 0 % (0-3) Basophils (%) (Auto) 0 % (0-3) Neutrophils # (Auto) 6.3 x10^3/uL (1.8-7.7) Lymphocytes # (Auto) 0.6 x10^3/uL (1.0-4.8) Monocytes # (Auto) 0.5 x10^3/uL (0.0-1.1) Eosinophils # (Auto) 0.0 x10^3/uL (0.0-0.7) Basophils # (Auto) 0.0 x10^3/uL (0.0-0.2) Sodium Level 138 mmol/L (136-145) Potassium Level 3.9 mmol/L (3.5-5.1) Chloride Level 103 mmol/L (98-107) Carbon Dioxide Level 26 mmol/L (21-32) Anion Gap 9 (6-14) Blood Urea Nitrogen 18 mg/dL (7-20) Creatinine 1.3 mg/dL (0.6-1.0) Estimated GFR (Cockcroft-Gault) 41.0 BUN/Creatinine Ratio 14 (6-20) Glucose Level 94 mg/dL (70-99) Calcium Level 8.4 mg/dL (8.5-10.1) Total Bilirubin 0.1 mg/dL (0.2-1.0) Aspartate Amino Transf (AST/SGOT) 14 U/L (15-37) Alanine Aminotransferase (ALT/SGPT) 34 U/L (14-59) Alkaline Phosphatase 63 U/L (46-116) Total Protein 5.7 g/dL (6.4-8.2) Albumin 2.3 g/dL (3.4-5.0) Albumin/Globulin Ratio 0.7 (1.0-1.7) Laboratory Tests Test 07/09/20 11:32 07/09/20 17:03 07/09/20 21:37 07/10/20 04:15 Glucose (Fingerstick) 152 mg/dL (70-99) 110 mg/dL (70-99) 152 mg/dL (70-99) White Blood Count 7.5 x10^3/uL (4.0-11.0) Red Blood Count 4.21 x10^6/uL (3.50-5.40) Hemoglobin 12.1 g/dL (12.0-15.5) Hematocrit 37.0 % (36.0-47.0) Mean Corpuscular Volume 88 fL (79-100) Mean Corpuscular Hemoglobin 29 pg (25-35) Mean Corpuscular Hemoglobin Concent 33 g/dL (31-37) Red Cell Distribution Width 13.5 % (11.5-14.5) Platelet Count 187 x10^3/uL (140-400) Neutrophils (%) (Auto) 84 % (31-73) Lymphocytes (%) (Auto) 9 % (24-48) Monocytes (%) (Auto) 7 % (0-9) Eosinophils (%) (Auto) 0 % (0-3) Basophils (%) (Auto) 0 % (0-3) Neutrophils # (Auto) 6.3 x10^3/uL (1.8-7.7) Lymphocytes # (Auto) 0.6 x10^3/uL (1.0-4.8) Monocytes # (Auto) 0.5 x10^3/uL (0.0-1.1) Eosinophils # (Auto) 0.0 x10^3/uL (0.0-0.7) Basophils # (Auto) 0.0 x10^3/uL (0.0-0.2) Sodium Level 138 mmol/L (136-145) Potassium Level 3.9 mmol/L (3.5-5.1) Chloride Level 103 mmol/L (98-107) Carbon Dioxide Level 26 mmol/L (21-32) Anion Gap 9 (6-14) Blood Urea Nitrogen 18 mg/dL (7-20) Creatinine 1.3 mg/dL (0.6-1.0) Estimated GFR (Cockcroft-Gault) 41.0 BUN/Creatinine Ratio 14 (6-20) Glucose Level 94 mg/dL (70-99) Calcium Level 8.4 mg/dL (8.5-10.1) Total Bilirubin 0.1 mg/dL (0.2-1.0) Aspartate Amino Transf (AST/SGOT) 14 U/L (15-37) Alanine Aminotransferase (ALT/SGPT) 34 U/L (14-59) Alkaline Phosphatase 63 U/L (46-116) Total Protein 5.7 g/dL (6.4-8.2) Albumin 2.3 g/dL (3.4-5.0) Albumin/Globulin Ratio 0.7 (1.0-1.7) Test 07/10/20 07:15 Glucose (Fingerstick) 163 mg/dL (70-99) Medications Active Scripts Medications Dose Route/Sig Max Daily Dose Days Date Category Januvia (Sitagliptin Phosphate) 50 Mg Tablet 1 Tab PO DAILY 07/08/20 Reported Actos (Pioglitazone Hcl) 15 Mg Tablet 10 Mg PO DAILY 07/08/20 Reported Glyburide 5 Mg Tablet 10 Mg PO DAILY 07/08/20 Reported Impression . IMPRESSION: 1. Fever. 2. Acute hypoxemic respiratory failure. 3. Abnormal x-ray compatible with pneumonia, suspect gram-negative, possibly gram-positive. 4. Tobacco dependent. 5. Possible chronic obstructive pulmonary disease. 6. Diabetes. 7. Osteoarthritis. CT report Consolidative change involving the wrist. Lingula with more groundglass changes in the inferior lingula favor pulmonary infiltrate in the appropriate clinical setting. Recommend follow-up to resolution to assess for underlying neoplastic process. No pathologically enlarged thoracic lymph nodes. Trace left pleural effusion with adjacent compressive atelectasis versus infiltrate. Plan . CT reviewed, patient continues to have fever We will repeat SARS-CoV-2 Empiric So far cultures negative LILLIE CRENSHAW MD Jul 10, 2020 08:43
--- NOTE | 2020-07-10 09:23 | NUR ---
SW following. Discussed with RN, pt from home, ada diet, room air, COVID-19. PT/OT recommending home. Pt had fevers overnight. SW will continue to follow.
[2020-07-10] MEDS: MAGNESIUM OXIDE 400 MG TABLET PO SCH ×2 (10:07→20:19)
[2020-07-10] MEDS: LACTOBACILLUS RHAMNOSUS GG 1 CAPSULE. PO SCH ×2 (10:07→20:18)
[2020-07-10] MEDS: ASPIRIN ENTERIC COATED 81 MG TABLET.DR. PO SCH (10:07)
[2020-07-10] MEDS: ENOXAPARIN 40 MG/0.4 ML SYRINGE. SQ SCH ×2 (10:08→20:19)
[2020-07-10 11:00] VITALS: BP 118/51
--- NOTE | 2020-07-10 12:56 | PDOC ---
[facility] PROGRESS NOTE Date of Service DOS: DATE: 07/10/20 TIME: 12:51 Chief Complaint Chief Complaint Sepsis due to CAP Consolidation in the lateral left midlung may represent pneumonia follow-up to resolution to exclude underlying neoplastic process., poss gram neg, gram pos COVID-19 negative ACUTE HYPOXIC RESP FAILURE tobacco abuse disorder Severe protein malnutrition PLAN Continue Emperic iv antibiotics, zithromax, rocephin Appreciate pulmonary recommendations COVID-19 ruled out BLOOD CULTURES FERRITIN CRP Counseled on smoking cessation, patient refused nicotine patch at this time Lovenox for DVT prophylaxis ADA diet Full code Discussed with RN and SW Disposition continue inpatient care Surrogate decision maker is the Michelle Keita History of Present Illness History of Present Illness 64 year [id number] female past medical history diabetes presents with a chief complaint of fever diffuse muscle aches and nausea. Patient states symptoms been ongoing since Wednesday. Patient states Wednesday morning she had a temperature up to 105. Patient states since onset fevers been up and down when treated with Tylenol. Patient states she has diffuse muscle aches. Patient also complains of nausea. Patient has ileostomy in place and states whenever she is very dehydrated she has nausea. Patient states she feels she is dehydrated. Patient also states she has a mild cough but denies any sputum production she denies any chest pain shortness of breath or abdominal pain. 07/10/2020 No acute events overnight. Patient did have a fever 103. Patient is still saturating 94% on room air. Patient is tolerating diet. Patient's chart, labs, images were reviewed and discussed with RN Vitals/I&O Vitals/I&O: Vital Signs Date Time Temp Pulse Resp B/P (MAP) Pulse Ox O2 Delivery O2 Flow Rate FiO2 07/10/20 11:19 Room Air 07/10/20 11:00 98.7 52 18 118/51 (73) 94 98.7 07/09/20 20:00 2.0 I & O 07/09/20 07/09/20 07/10/20 15:00 23:00 07:00 Intake Total 525 ml 1300 ml 1650 ml Output Total 550 ml 0 ml Balance -25 ml 1300 ml 1650 ml Physical Exam Physical Exam: GEN: No apparent distress. Alert and oriented HEENT: Normal cephalic, atraumatic, external auditory canals are patent NECK: Supple, no JVD, no thyromegaly was noted LUNGS: Bilateral clear airway entry HEART: RRR, S1, S2 present. Peripheral pulses intact, no obvious murmurs noted ABDOMEN: Soft, nontender. Positive bowel sounds, no organomegaly, normal bowel sounds EXTREMITIES: Without clubbing, cyanosis, or edema. Pedal pulses intact. Negative Homans sign General: Alert, Oriented X3, Cooperative, No acute distress Extremities: No cyanosis Labs Labs: Laboratory Tests Test 07/09/20 17:03 07/09/20 21:37 07/10/20 04:15 07/10/20 07:15 Glucose (Fingerstick) 110 mg/dL (70-99) 152 mg/dL (70-99) 163 mg/dL (70-99) White Blood Count 7.5 x10^3/uL (4.0-11.0) Red Blood Count 4.21 x10^6/uL (3.50-5.40) Hemoglobin 12.1 g/dL (12.0-15.5) Hematocrit 37.0 % (36.0-47.0) Mean Corpuscular Volume 88 fL (79-100) Mean Corpuscular Hemoglobin 29 pg (25-35) Mean Corpuscular Hemoglobin Concent 33 g/dL (31-37) Red Cell Distribution Width 13.5 % (11.5-14.5) Platelet Count 187 x10^3/uL (140-400) Neutrophils (%) (Auto) 84 % (31-73) Lymphocytes (%) (Auto) 9 % (24-48) Monocytes (%) (Auto) 7 % (0-9) Eosinophils (%) (Auto) 0 % (0-3) Basophils (%) (Auto) 0 % (0-3) Neutrophils # (Auto) 6.3 x10^3/uL (1.8-7.7) Lymphocytes # (Auto) 0.6 x10^3/uL (1.0-4.8) Monocytes # (Auto) 0.5 x10^3/uL (0.0-1.1) Eosinophils # (Auto) 0.0 x10^3/uL (0.0-0.7) Basophils # (Auto) 0.0 x10^3/uL (0.0-0.2) Sodium Level 138 mmol/L (136-145) Potassium Level 3.9 mmol/L (3.5-5.1) Chloride Level 103 mmol/L (98-107) Carbon Dioxide Level 26 mmol/L (21-32) Anion Gap 9 (6-14) Blood Urea Nitrogen 18 mg/dL (7-20) Creatinine 1.3 mg/dL (0.6-1.0) Estimated GFR (Cockcroft-Gault) 41.0 BUN/Creatinine Ratio 14 (6-20) Glucose Level 94 mg/dL (70-99) Calcium Level 8.4 mg/dL (8.5-10.1) Total Bilirubin 0.1 mg/dL (0.2-1.0) Aspartate Amino Transf (AST/SGOT) 14 U/L (15-37) Alanine Aminotransferase (ALT/SGPT) 34 U/L (14-59) Alkaline Phosphatase 63 U/L (46-116) Total Protein 5.7 g/dL (6.4-8.2) Albumin 2.3 g/dL (3.4-5.0) Albumin/Globulin Ratio 0.7 (1.0-1.7) Test 07/10/20 10:30 Glucose (Fingerstick) 151 mg/dL (70-99) Assessment and Plan Assessmemt and Plan Problems Medical Problems: (1) Fever Status: Acute (2) Person under investigation for COVID-19 Status: Acute (3) Pneumonia Status: Acute (4) Viral syndrome Status: Acute Comment Review of Relevant I have reviewed the following items radha (where applicable) has been applied. Medications: Current Medications Medications (Trade) Dose Ordered Sig/Jo-Ann Route PRN Reason Start Time Stop Time Status Last Admin Dose Admin Ceftriaxone Sodium (Rocephin) 1 gm Q24H IVP 07/09/20 21:00 07/09/20 20:44 Azithromycin 500 mg/Sodium Chloride 250 ml @ 250 mls/hr Q24H IV 07/09/20 21:00 07/09/20 20:44 Lactobacillus Rhamnosus (Culturelle) 1 cap BID PO 07/09/20 21:00 07/10/20 10:07 Albuterol/ Ipratropium (Duoneb) 3 ml QID NEB 07/10/20 09:00 07/10/20 11:17 Justifications for Admission Other Justification APRIL CABRAL MD Jul 10, 2020 12:56
[2020-07-10 15:00] VITALS: BP 128/53
[2020-07-10 19:00] VITALS: BP 128/64
[2020-07-10] MEDS: MAGNESIUM SULFATE 2GM 50 ML IV SCH (20:17)
[2020-07-10] MEDS: AZITHROMYCIN 500 MG in IV NORMAL SALINE 250ML 250 ML IV SCH (20:17)
[2020-07-10] MEDS: cefTRIAXone IV Push 1 GM VIAL. IVP SCH (20:19)
[2020-07-10 23:00] VITALS: BP 129/56
[2020-07-11] MEDS: IV NORMAL SALINE 1000ML BAG 1,000 ML IV SCH ×3 (00:40→10:40)
[2020-07-11 03:00] VITALS: BP 135/63
[2020-07-11 07:00] VITALS: BP 147/50
[2020-07-11] MEDS: IPRATRPIUM/ALBUTEROL 0.5/2.5MG 3 ML NEBU. NEB SCH ×2 (07:32→11:06)
[2020-07-11] MEDS: INSULIN LISPRO 300 UNITS/3 ML VIAL. SQ SCH ×2 (08:00→12:00)
--- NOTE | 2020-07-11 08:18 | PDOC ---
PULMONARY PROGRESS NOTES DATE: 07/11/20 TIME: 08:17 Subjective No events overnight Vitals Vital Signs Date Time Temp Pulse Resp B/P (MAP) Pulse Ox O2 Delivery O2 Flow Rate FiO2 07/11/20 07:33 94 Room Air 07/11/20 03:00 97.9 77 19 135/63 (87) 97.9 Labs Laboratory Tests Test 07/09/20 11:32 07/09/20 17:03 07/09/20 21:37 07/10/20 04:15 Glucose (Fingerstick) 152 mg/dL (70-99) 110 mg/dL (70-99) 152 mg/dL (70-99) White Blood Count 7.5 x10^3/uL (4.0-11.0) Red Blood Count 4.21 x10^6/uL (3.50-5.40) Hemoglobin 12.1 g/dL (12.0-15.5) Hematocrit 37.0 % (36.0-47.0) Mean Corpuscular Volume 88 fL (79-100) Mean Corpuscular Hemoglobin 29 pg (25-35) Mean Corpuscular Hemoglobin Concent 33 g/dL (31-37) Red Cell Distribution Width 13.5 % (11.5-14.5) Platelet Count 187 x10^3/uL (140-400) Neutrophils (%) (Auto) 84 % (31-73) Lymphocytes (%) (Auto) 9 % (24-48) Monocytes (%) (Auto) 7 % (0-9) Eosinophils (%) (Auto) 0 % (0-3) Basophils (%) (Auto) 0 % (0-3) Neutrophils # (Auto) 6.3 x10^3/uL (1.8-7.7) Lymphocytes # (Auto) 0.6 x10^3/uL (1.0-4.8) Monocytes # (Auto) 0.5 x10^3/uL (0.0-1.1) Eosinophils # (Auto) 0.0 x10^3/uL (0.0-0.7) Basophils # (Auto) 0.0 x10^3/uL (0.0-0.2) Sodium Level 138 mmol/L (136-145) Potassium Level 3.9 mmol/L (3.5-5.1) Chloride Level 103 mmol/L (98-107) Carbon Dioxide Level 26 mmol/L (21-32) Anion Gap 9 (6-14) Blood Urea Nitrogen 18 mg/dL (7-20) Creatinine 1.3 mg/dL (0.6-1.0) Estimated GFR (Cockcroft-Gault) 41.0 BUN/Creatinine Ratio 14 (6-20) Glucose Level 94 mg/dL (70-99) Calcium Level 8.4 mg/dL (8.5-10.1) Total Bilirubin 0.1 mg/dL (0.2-1.0) Aspartate Amino Transf (AST/SGOT) 14 U/L (15-37) Alanine Aminotransferase (ALT/SGPT) 34 U/L (14-59) Alkaline Phosphatase 63 U/L (46-116) Total Protein 5.7 g/dL (6.4-8.2) Albumin 2.3 g/dL (3.4-5.0) Albumin/Globulin Ratio 0.7 (1.0-1.7) Test 07/10/20 07:15 07/10/20 10:30 07/10/20 17:28 07/10/20 20:06 Glucose (Fingerstick) 163 mg/dL (70-99) 151 mg/dL (70-99) 194 mg/dL (70-99) 163 mg/dL (70-99) Test 07/11/20 07:18 Glucose (Fingerstick) 120 mg/dL (70-99) Laboratory Tests Test 07/10/20 10:30 07/10/20 17:28 07/10/20 20:06 07/11/20 07:18 Glucose (Fingerstick) 151 mg/dL (70-99) 194 mg/dL (70-99) 163 mg/dL (70-99) 120 mg/dL (70-99) Medications Active Scripts Medications Dose Route/Sig Max Daily Dose Days Date Category Januvia (Sitagliptin Phosphate) 50 Mg Tablet 1 Tab PO DAILY 07/08/20 Reported Actos (Pioglitazone Hcl) 15 Mg Tablet 10 Mg PO DAILY 07/08/20 Reported Glyburide 5 Mg Tablet 10 Mg PO DAILY 07/08/20 Reported Impression . IMPRESSION: 1. Fever. 2. Acute hypoxemic respiratory failure. 3. Abnormal x-ray compatible with pneumonia, suspect gram-negative, possibly gram-positive. 4. Tobacco dependent. 5. Possible chronic obstructive pulmonary disease. 6. Diabetes. 7. Osteoarthritis. CT report Consolidative change involving the wrist. Lingula with more groundglass changes in the inferior lingula favor pulmonary infiltrate in the appropriate clinical setting. Recommend follow-up to resolution to assess for underlying neoplastic process. No pathologically enlarged thoracic lymph nodes. Trace left pleural effusion with adjacent compressive atelectasis versus infiltrate. Plan . CT reviewed with patient, Follow-up in my office in 2 months with a repeat CT chest Okay to discharge LILLIE CRENSHAW MD Jul 11, 2020 08:17
[2020-07-11] MEDS: LACTOBACILLUS RHAMNOSUS GG 1 CAPSULE. PO SCH (09:24)
[2020-07-11] MEDS: ASPIRIN ENTERIC COATED 81 MG TABLET.DR. PO SCH (09:24)
[2020-07-11] MEDS: ENOXAPARIN 40 MG/0.4 ML SYRINGE. SQ SCH (09:25)
--- NOTE | 2020-07-11 09:35 | NUR ---
SW following. Discussed with RN, pt from home, room air, ada diet, PT/OT recommending home. Pt re-swabbed for COVID-19. Pt wanting to discharge home today. RN advised no SW needs, anticipate discharge home with self care today.
[2020-07-11] MEDS ORDERED: AZIT250T6 PO (10:51)
[2020-07-11] MEDS ORDERED: CEFD300C PO (10:55)
--- NOTE | 2020-07-11 10:58 | DISCH ---
DISCHARGE INSTRUCTIONS Condition on Discharge Condition on Discharge: Stable Activity After Discharge Activity Instructions for Disc: No restrictions Driving Instructions after Dis: Do not drive today Weight Bearing Status after Di: As tolerated Diet after Discharge Diet after Discharge: Regular Follow-Up Follow up with: PCP within 1 week of discharge Follow Up With: Pulmonology for repeat CT in 6 weeks APRIL CABRAL MD Jul 11, 2020 10:58
[2020-07-11 11:00] VITALS: BP 124/61
[2020-07-11] MEDS ORDERED: AZITHROMYCIN 250 MG TABLET. PO SCH (11:00)
[2020-07-11] MEDS ORDERED: DOXYCYCLINE HYCLATE 100 MG TABLET PO SCH (11:00)
--- NOTE | 2020-07-11 13:52 | NUR ---
Pt discharged home with self care. Discharge instructions and prescriptions discussed. Pt denied any questions. IV removed. Pt packed belongings on her own. Assisted to wheelchair and was taken to main entrance and secured in car with .
--- NOTE | 2020-07-11 21:31 | PDOC3 ---
[facility]-Discharge Summary Date of Admission: Date of Admission: Jul 09, 2020 Date of Discharge: Date of Discharge: Jul 11, 2020 Admission Diagnosis: Admitting Diagnosis: Consolidation in the lateral left midlung may represent pneumonia follow-up to resolution to exclude underlying neoplastic process., poss gram neg, gram pos LEUKOCYTOSIS HYPOKALEMIA sepsis FEVER pui for COVID -19 ACUTE HYPOXIC RESP FAILURE tobacco abuse disorder Discharge Diagnosis: Discharge Diagnosis: Sepsis due to CAP Consolidation in the lateral left midlung may represent pneumonia follow-up to resolution to exclude underlying neoplastic process., poss gram neg, gram pos COVID-19 negative ACUTE HYPOXIC RESP FAILURE tobacco abuse disorder Severe protein malnutrition Consults: Consults: Pulmonology Hospital Course: Hospital Course: 64 year oldvds-jvyc-lou female past medical history diabetes presents with a chief complaint of fever diffuse muscle aches and nausea. Patient states symptoms been ongoing since Wednesday. Patient states Wednesday morning she had a temperature up to 105. Patient states since onset fevers been up and down when treated with Tylenol. Patient states she has diffuse muscle aches. Patient also complains of nausea. Patient has ileostomy in place and states whenever she is very dehydrated she has nausea. Patient states she feels she is dehydrated. Patient also states she has a mild cough but denies any sputum production she denies any chest pain shortness of breath or abdominal pain. 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 Patient states she is checked weekly for COVID. Patient was admitted for further management and IV empiric antibiotics and evaluated by pulmonology. Patient was clinically stable throughout her hospital stay and was saturating well without any supplemental O2. Patient will need to f/u with pulmonology to repeat her CT scan in 2 months. Patient will be discharge with 5 days of cefdinir and azithromycin. The rest of her hospital course was uneventful. Disposition: Disposition/Orders: D/C to Home Activity: Activity: Resume previous activity Diet: Diet: Regular Medications: Home Meds Active Scripts Cefdinir (CEFDINIR) 300 Mg Capsule, 1 CAP PO BID for PNA for 5 Days, #10 CAP Prov:APRIL CABRAL MD 07/11/20 Azithromycin (AZITHROMYCIN TABLET) 250 Mg Tablet, 250 MG PO DAILY for PNA for 5 Days, #5 TAB Prov:APRIL CABRAL MD 07/11/20 Reported Medications Sitagliptin Phosphate (JANUVIA) 50 Mg Tablet, 1 TAB PO DAILY, #30 TAB 5 Refills 07/08/20 Pioglitazone Hcl (ACTOS) 15 Mg Tablet, 10 MG PO DAILY, TAB 07/08/20 Glyburide (GLYBURIDE) 5 Mg Tablet, 10 MG PO DAILY, TAB 07/08/20 Scheduled Azithromycin (Azithromycin Tablet), 250 MG PO DAILY Cefdinir (Cefdinir), 1 CAP PO BID Glyburide (Glyburide), 10 MG PO DAILY, (Reported) Pioglitazone Hcl (Actos), 10 MG PO DAILY, (Reported) Sitagliptin Phosphate (Januvia), 1 TAB PO DAILY, (Reported) Total Time: Total Time: Total time spent was 25 minutes in preparing scripts, discharge planning with SW and RN, and preparing this discharge summary. Justicifation of Admission Dx: Justifications for Admission: Justification of Admission Dx: Yes Comminuty Aquired Pneumonia: Dehydration APRIL CABRAL MD Jul 11, 2020 21:31
== END 2020-07-11 13:00 | disposition home or self-care (01) | DRG 871 ==
LOC: ER 17:40 → 6 SOUTH 20:25 → OBSVTOIN 21:03 → 4 NORTH 07-09 19:35
PROVIDERS: ADMIT Internal Medicine; ATTEND Internal Medicine
DX: A41.9 Sepsis, unspecified organism (principal); J96.01 Acute respiratory failure with hypoxia; E43 Unspecified severe protein-calorie malnutrition; J18.9 Pneumonia, unspecified organism; J91.8 Pleural effusion in other conditions classified elsewhere; M19.90 Unspecified osteoarthritis, unspecified site; E11.9 Type 2 diabetes mellitus without complications; Z20.828 Contact with and (suspected) exposure to other viral communicable diseases; B34.9 Viral infection, unspecified; E78.5 Hyperlipidemia, unspecified; E86.0 Dehydration; F17.200 Nicotine dependence, unspecified, uncomplicated; Z93.2 Ileostomy status; Z83.49 Family history of other endocrine, nutritional and metabolic diseases; Z79.899 Other long term (current) drug therapy; Z68.28 Body mass index [BMI] 28.0-28.9, adult
CPT/HCPCS: 36415; 71045; 71250; 80048; 80053; 81001; 82728; 82962; 83605; 83735; 84100; 84484; 85007; 85025; 86140; 87040; 94640; 94760; 96361; 96374; 96375; 99285; 99406; G0379; J0456; J0696; J1650; J1815; J2405; J3480; J7030; J7050; G0378; U0003-CS